=== PATIENT | female | born 1975 | race Caucasian/White ===

== ENCOUNTER 2019-06-11 11:12 | Emergency (ER) | payer BC ==
[2019-06-11] MEDS ORDERED: OXYCODONE-ACETAMINOPHEN 5-325 MG TABLET PO ONE (13:23)
--- NOTE | 2019-06-11 13:25 | ER Document Report ---
HPI - HPI Time Seen by Provider: 06/11/19 12:24 Pain Level: 4 Context: Patient is a 43-year-old female who presents to the emergency department with a chief complaint of medication refill. Patient states that for the past 6 years she has been a patient at [facility]. Patient states she does have a history of spinal stenosis, degenerative disc disease, rheumatoid arthritis and chronic back pain. Patient reports for the past 6 years she has taken Percocet 10 mg 3 times a day as well as OxyContin 15 mg twice a day. Patient reports she was last seen in [facility] on May 21 and pop positive for cocaine in her urine drug screen. Patient states she has call around to multiple other pain management clinics who denied her access. Patient states she did see Dr. Khan who is her primary care physician and referred her to other pain management doctors who also denied accepting the patient. Patient states she does have an appointment with [facility] on July 02 for possible Suboxone. Patient states she runs out of her medications later today. Patient states she is attempted to contact [facility] and [employer] and was also denied. Patient states she was told to come to the emergency department for further management. - CONSTITUTIONAL Constitutional: DENIES: Fever, Chills - REPRODUCTIVE Reproductive: DENIES: : Past Medical History - General Information source: Patient - Social History Smoking Status: Unknown if Ever Smoked Lives with: Family Family History: None Patient has suicidal ideation: No Patient has homicidal ideation: No - Past Medical History Cardiac Medical History: Reports: None Pulmonary Medical History: Reports: None EENT Medical History: Reports: None Neurological Medical History: Reports: None Endocrine Medical History: Reports: None Renal/ Medical History: Reports: None. Denies: Hx Peritoneal Dialysis Malignancy Medical History: Reports: None GI Medical History: Reports: None Musculoskeletal Medical History: Reports Other - DJD, spinal stenosis, RA Skin Medical History: Reports None Psychiatric Medical History: Reports: None Traumatic Medical History: Reports: None Infectious Medical History: Reports: None Surgical Hx: Negative Vertical Provider Document - CONSTITUTIONAL Agree With Documented VS: Yes Exam Limitations: No Limitations General Appearance: No Apparent Distress - INFECTION CONTROL TRAVEL OUTSIDE OF THE [place] IN LAST 30 DAYS: No - HEENT HEENT: Atraumatic, Normocephalic, PERRLA - NECK Neck: Normal Inspection - RESPIRATORY Respiratory: Breath Sounds Normal, No Respiratory Distress - CARDIOVASCULAR Cardiovascular: Regular Rate, Regular Rhythm - GI/ABDOMEN Gastrointestinal: Abdomen Soft, Abdomen Non-Tender, Normal Bowel Sounds - BACK Back: Normal Inspection - NEURO Level of Consciousness: Awake, Alert, Appropriate - DERM Integumentary: Warm, Dry, No Rash Course - Re-evaluation Re-evalutation: 06/11/19 13:36 Patient here for medication refill. I did inform the patient that we do not refill chronic pain medication prescriptions. Patient states that she is frustrated because she is attempted to reach out to multiple different clinics and does not have an appointment with the [facility] until July 02. I did speak with her mental health counselors and provided the patient with the information and contact for [facility]. Patient states she will call them later today to try to get an appointment before the . I did inform the patient that we will give her a dose of pain medication while she is here. Patient states her is able to come and pick her up to provide a ride as I did explain to the patient she is not supposed to take narcotics and drive a vehicle. Patient is very appreciative of the resources that I did provide to her at discharge. Patient remains calm although tearful. Patient denies nause a, vomiting, diarrhea or abdominal pain. I did inform the patient to return if she starts to experience any symptoms of detox/WITHDRAWAL. Patient was also given multiple detox resources. - Vital Signs Vital signs: Temp Pulse Resp BP Pulse Ox 97.9 F 62 18 134/67 H 95 06/11/19 11:20 06/11/19 11:20 06/11/19 11:20 06/11/19 11:20 06/11/19 11:20 Discharge - Discharge Clinical Impression: Encounter for medication refill Condition: Stable Disposition: HOME, SELF-CARE Additional Instructions: Today you were seen in the emergency department for medication refill. Unfortunately we do not prescribe chronic pain medications from the emergency department. I have given you a one-time dose while in the ER for your chronic pain. I did speak with our mental health counselors and provided you with multiple resources in the area regarding detox and Suboxone/methadone clinics. Please keep your appointment with [facility] and see on July [address] [facility] to see if they are able to see you before then. Please return to the emergency department if you develop any abdominal pain, fever, vomiting or any other concerning signs or symptoms. Please follow-up with your primary care physician Dr. Khan. Referrals: RICARDO KHAN MD [Primary Care Provider] - Follow up as needed
[2019-06-11 13:38] VITALS: BP 120/77
== END 2019-06-11 13:38 | disposition home or self-care (01) ==
LOC: ER 11:12
DX: Z76.0 Encounter for issue of repeat prescription (principal); G89.29 Other chronic pain; Z79.899 Other long term (current) drug therapy

== ENCOUNTER → 2019-08-27 | Outpatient (CLI) | payer BC ==
--- NOTE | 2019-08-27 13:00 | WOMENS IMAGING REPORT ---
EXAM DESCRIPTION: BILAT SCREENING MAMMO W/CAD COMPLETED DATE/TIME: 08/27/2019 11:59 am REASON FOR STUDY: Z12.31 SCREENING MAMMO Z12.31 ENCNTR SCREEN MAMMOGRAM FOR MALIGNANT NEOPLASM OF B RE COMPARISON: 2015 EXAM PARAMETERS: Standard craniocaudal and mediolateral oblique views of each breast recorded using digital acquisition. Read with the assistance of CAD. .[facility] - R2 [employer] Version 9.2 LIMITATIONS: None. FINDINGS: No suspicious masses, suspicious calcifications or architectural distortion. No areas of c oncern. IMPRESSION: Negative MAMMOGRAM. BIRADS 1 BREAST DENSITY: b. There are scattered areas of fibroglandular density. BIRAD: ASSESSMENT: 1 NEGATIVE RECOMMENDATION: ROUTINE SCREENING COMMENT: The patient has been notified of the results by letter per MQSA requirements. Additional no tification policies are in place for contacting patient with suspicious or incomplete findings. Quality ID #[id number]: The [employer] recommends an annual screening mammogram for women aged 40 years or over. This facility utilizes a reminder system to ensure that all patients receive reminder letters, and/or direct phone calls for appointments. This includes reminders for routine scr eening mammograms, diagnostic mammograms, or other Breast Imaging Interventions when appropriate. Th is patient will be placed in the appropriate reminder system. TECHNICAL DOCUMENTATION: FINDING NUMBER: (1) ASSESSMENT: (1) JOB ID: [id number] [employer]- All Rights Reserved Reading location - IP/workstation name: [email or web address]
== END ==
LOC: WI 11:40
PROVIDERS: ATTEND Internal Medicine Geriatric Medicine
DX: Z12.31 Encounter for screening mammogram for malignant neoplasm of breast (principal)
CPT/HCPCS: 77067